=== PATIENT | male | born 1985 | race Caucasian/White ===

== ENCOUNTER 2017-06-26 17:38 | Emergency (ER) | payer OTHER ==
--- NOTE | 2017-06-26 18:38 | ED.PDOC ---
History of Present Illness - General Chief Complaint: General Stated Complaint: body aches /fever Time Seen by Provider: 06/26/17 17:52 Source: patient Exam Limitations: no limitations - History of Present Illness Initial Comments: Tristian Blanca 31 y/o male stated that he had generalized body aches since yesterday then today had fever,nasal congestion,headaches but no cough or achy throat.Denies chronic medical problems.No ill contact. Took Excedrin 3 hours ago Timing/Duration: 24 hours Severity: moderate Improving Factors: nothing Worsening Factors: nothing Associated Symptoms: other - see hpi Allergies/Adverse Reactions: Allergies NO KNOWN ALLERGY Allergy (Verified 06/26/17 18:47) Home Medications: Ambulatory Orders Oseltamivir Capsule [Tamiflu] 75 mg PO BID 5 Days #10 capsule 06/26/17 Review of Systems - Review of Systems Constitutional: States: see HPI, fever, malaise EENTM: States: see HPI, nose congestion Respiratory: States: no symptoms reported Cardiology: States: no symptoms reported Gastrointestinal/Abdominal: States: no symptoms reported Genitourinary: States: no symptoms reported Musculoskeletal: States: see HPI, muscle pain Neurological: States: see HPI, headache Endocrine: States: no symptoms reported All other Systems: Reviewed and Negative, No Change from Baseline Past Medical History (General) - Patient Medical History Hx Seizures: No Hx Asthma: No Hx Hypertension: No - Social History Hx Chewing Tobacco Use: No Hx Alcohol Use: No Hx Substance Use: No Family Medical History - Family History Mother Family History: No Known Physical Exam - Physical Exam General Appearance: Alert, Comfortable, No apparent distress Eye Exam: bilateral normal Ears, Nose, Throat: hearing grossly normal, normal ENT inspection Neck: non-tender, full range of motion, supple Respiratory: chest non-tender, lungs clear, normal breath sounds, decreased breath sounds Cardiovascular/Chest: normal peripheral pulses, regular rate, rhythm Peripheral Pulses: radial,right: 2+, radial,left: 2+ Gastrointestinal/Abdominal: normal bowel sounds, non tender, soft, no organomegaly Back Exam: normal inspection, no CVA tenderness, no vertebral tenderness Extremity: non-tender, no calf tenderness Neurologic: no motor/sensory deficits, alert, oriented x 3 Skin Exam: normal color, warm/dry Progress - Progress Progress: 06/26/17 21:08 Vital Signs - 8 hr 06/26/17 06/26/17 18:30 18:45 Temperature 98.9 F Pulse Rate [ 95 H left brachial] Respiratory 20 20 Rate Blood Pressure 148/93 [left brachial] O2 Sat by Pulse 98 Oximetry - Results/Orders Results/Orders: Laboratory Tests 06/26/17 06/26/17 18:53 19:14 WBC 4.8 RBC 5.39 Hgb 16.1 Hct 47.1 MCV 87.4 MCH 29.9 MCHC 34.2 RDW 13.0 Plt Count 208 MPV 7.4 Absolute Neuts (auto) 3.20 Absolute Lymphs (auto) 1.00 Absolute Monos (auto) 0.50 Absolute Eos (auto) 0.00 Absolute Basos (auto) 0.00 Neutrophils % 67.8 Lymphocytes % 20.0 Monocytes % 10.7 H Eosinophils % 0.9 L Basophils % 0.6 Sodium 136 Potassium 3.5 L Chloride 102 Carbon Dioxide 30 Anion Gap 7.5 L BUN 14 Creatinine 0.90 BUN/Creatinine Ratio 15.6 Random Glucose 96 Serum Osmolality 272.3 L Calcium 9.1 Departure - Departure Clinical Impression: Viral illness Time of Disposition: 21:09 Disposition: Discharge to Home or Self Care Condition: Good Departure Forms: ED Discharge - Pt. Copy, Patient Portal Self Enrollment Instructions: DI for Viral Syndrome, DI for Viral Upper Respiratory Infection - - Adult Diet: other - need to drink extra fluids Prescriptions: Oseltamivir Capsule [Tamiflu] 75 mg PO BID 5 Days #10 capsule Home Medications: Ambulatory Orders Oseltamivir Capsule [Tamiflu] 75 mg PO BID 5 Days #10 capsule 06/26/17 Additional Instructions: Continue with Tylenol 500 mg every 6 hours for fever/pain;Follow up with primary Md 06/28/2017 as needed
[2017-06-26] MEDS ORDERED: OSELTAMIVIR 75 MG CAP PO ONE (21:09)
[2017-06-26 21:28] VITALS: BP 161/86; TEMP 98.7; O2SAT 96
== END 2017-06-26 21:28 | disposition home or self-care (01) ==
LOC: ER 17:38
DX: R50.9 Fever, unspecified (principal); B34.9 Viral infection, unspecified

== ENCOUNTER 2019-09-10 18:49 | Emergency (ER) | payer SELFPAY ==
[2019-09-10] MEDS ORDERED: SODIUM CHLORIDE 0.9% (FLUSH) 10 ML SYG IV PRN (19:22)
[2019-09-10] MEDS ORDERED: KETOROLAC TROMETHAMINE INJ 30 MG/ML VIAL IV ONE (19:22)
[2019-09-10] MEDS ORDERED: SODIUM CHLORIDE 0.9% 1000ML 1,000 ML IVS ONE (19:22)
[2019-09-10] MEDS ORDERED: PIPERACILLIN/TAZOBACTAM 4.5 GM in SODIUM CHLORIDE 0.9% 100ML 100 ML IVPB ONE (19:23)
[2019-09-10] MEDS ORDERED: SODIUM CHLORIDE 0.9% 100ML 100 ML IVPB ONE (19:26)
[2019-09-10] MEDS ORDERED: PIPERACILLIN/TAZOBACTAM 2.25 GM VIAL IVPB ONE (19:26)
[2019-09-10 20:09] VITALS: O2SAT 97
[2019-09-10] MEDS ORDERED: MORPHINE SULFATE INJ 10 MG/ML VIAL IV ONE (20:41)
--- NOTE | 2019-09-10 20:49 | ED.PDOC ---
History of Present Illness - General Chief Complaint: Problem Stated Complaint: pain/swelling testicle Time Seen by Provider: 09/10/19 19:12 Source: patient, RN notes reviewed, Vital Signs reviewed, family - Exam Limitations: no limitations - History of Present Illness Initial Comments: Patient is a 34-year-old white male who presents with complaints of scrotal pain. This started a few days ago and patient was hoping it would get better and so delayed coming in. The pain in the scrotal area is stabbing in nature, moderate in intensity, nonradiating, worse with palpation, nothing seems to make it better. The patient is worsening. Timing/Duration: getting worse, other - 3 to 4 days Quality: moderate, sharpness, throbbing Onset Location: scrotal Radiation: none Activites at Onset: none Prior abdominal problems: none Sexual intercourse history: less than 2 months ago Improving Factors: nothing Worsening Factors: other - Palpation Associated Symptoms: denies symptoms Allergies/Adverse Reactions: Allergies NO KNOWN ALLERGY Allergy (Verified 06/26/17 18:47) Home Medications: Ambulatory Orders Oseltamivir Capsule [Tamiflu] 75 mg PO BID 5 Days #10 capsule 06/26/17 Acetaminophen W/ Codeine [Tylenol W/ CODEINE #3] 1 ea PO Q4H #12 09/10/19 Amoxicillin & Pot Clavulanate [Augmentin Tab] 875 mg PO BID #20 tab 09/10/19 Review of Systems - Review of Systems Constitutional: States: no symptoms reported, see HPI. Denies: chills, fever, malaise EENTM: States: no symptoms reported Respiratory: States: no symptoms reported. Denies: cough, short of breath, stridor Cardiology: States: no symptoms reported. Denies: chest pain, palpitations, syncope Gastrointestinal/Abdominal: States: no symptoms reported. Denies: abdominal pain, diarrhea, nausea, vomiting Genitourinary: States: see HPI, pain - Scrotal. Denies: discharge, dysuria, frequency Musculoskeletal: States: no symptoms reported. Denies: back pain, neck pain Skin: States: see HPI, lumps - At the base of the scrotum Neurological: States: no symptoms reported. Denies: tingling, tremors, weakness Endocrine: Denies: increased hunger, increased thirst, increased urine Hematologic/Lymphatic: States: no symptoms reported All other Systems: Reviewed and Negative Past Medical History (General) - Patient Medical History Hx Seizures: No Hx Stroke: No Hx Dementia: No Hx Asthma: No Hx of COPD: No Hx Cardiac Disorders: No Hx Congestive Heart Failure: No Hx Pacemaker: No Hx Hypertension: No Hx Thyroid Disease: No Hx Diabetes: No Hx Gastroesophageal Reflux: No Hx Renal Disease: No Hx Cancer: No Hx of HIV: No Hx Hepatitis C: No Hx MRSA: No Surgical History: no surgical history - Vaccination History Hx Tetanus, Diphtheria Vaccination: No Hx Influenza Vaccination: No Hx Pneumococcal Vaccination: No Immunizations Up to Date: No - Social History Hx Tobacco Use: No Hx Chewing Tobacco Use: No Hx Alcohol Use: Yes Hx Substance Use: No Hx Substance Use Treatment: No Hx Depression: No Feels Threatened In Home Enviroment: No Feels Threatened In a Relationship: No Hx Physical Abuse: No Hx Emotional Abuse: No - Activities of Daily Living Hospice Agency (if applicable):: None - Female History Patient is a Female of Child Bearing Age (10 -59 yrs old): No - Triage Comment ED Triage Comment: pain started on monday on 09/06/19, denies any injury or trauma Family Medical History - Family History Mother Family History: No Known Physical Exam - Physical Exam General Appearance: Alert, Anxious, Obvious distress, Obese, Well Developed, Well Groomed, Well Hydrated, Well Nourished Eyes, Ears, Nose, Throat Exam: PERRL/EOMI, normal ENT inspection, pharynx normal Neck: non-tender, full range of motion, supple, normal inspection Cardiovascular/Respiratory: no M/R/G, normal peripheral pulses, normal breath sounds, no respiratory distress, tachycardia Gastrointestinal/Abdominal: normal bowel sounds, non tender, soft Male Genital Exam: erythema - At the base of the scrotum where there is indurated tissue but no fluctuance. 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 09/10/19 21:01 Patient is much improved after pain medicine and IV antibiotics. Plan on discharge home with a prescription for Augmentin and Tylenol 3. I discussed this plan of care with the patient and his and they voiced understanding and agreement with the plan of care. Arjun Molina M.D. #[id number] - Results/Orders Results/Orders: 09/10/19 19:22 IV Care:Saline Lock per Protoc QSHIFT Sodium Chloride 0.9% (Flush) [Saline Flush Syringe] 10 ml IV PRN PRN URINALYSIS Stat Laboratory Results - last 24 hr 09/10/19 09/10/19 19:40 19:40 WBC 12.7 H RBC 5.21 Hgb 15.3 Hct 44.9 MCV 86.1 MCH 29.4 MCHC 34.2 RDW 13.0 Plt Count 264 MPV 7.7 Absolute Neuts (auto) 9.40 H Absolute Lymphs (auto) 2.10 Absolute Monos (auto) 1.00 H Absolute Eos (auto) 0.20 Absolute Basos (auto) 0.10 Neutrophils % 74.2 Lymphocytes % 16.2 L Monocytes % 7.9 Eosinophils % 1.3 Basophils % 0.4 Sodium 137 Potassium 3.4 L Chloride 103 Carbon Dioxide 25 Anion Gap 12.4 BUN 12 Creatinine 0.95 BUN/Creatinine Ratio 12.6 Random Glucose 100 Serum Osmolality 273.7 L Calcium 8.9 Vital Signs 09/10/19 09/10/19 09/10/19 18:53 19:51 20:00 Temperature 100.3 F H Pulse Rate [ 109 H 94 H 95 H monitor] Respiratory 18 16 16 Rate Blood Pressure 145/111 145/94 162/92 [Left Arm] O2 Sat by Pulse 96 97 97 Oximetry Departure - Departure Clinical Impression: Cellulitis of scrotum Fever Qualifiers: Encounter type: initial encounter Time of Disposition: 21:05 Disposition: Discharge to Home or Self Care Condition: Good Departure Forms: ED Discharge - Pt. Copy, Patient Portal Self Enrollment Instructions: Cellulitis (Skin Infection), Adult (DC) Diet: resume usual diet Activity: increase activity as tolerated Referrals: VIVIANE DIETRICH [Primary Care Provider] - 1-5 Days Prescriptions: Acetaminophen W/ Codeine [Tylenol W/ CODEINE #3] 1 ea PO Q4H #12 Amoxicillin & Pot Clavulanate [Augmentin Tab] 875 mg PO BID #20 tab Home Medications: Ambulatory Orders Oseltamivir Capsule [Tamiflu] 75 mg PO BID 5 Days #10 capsule 06/26/17 Acetaminophen W/ Codeine [Tylenol W/ CODEINE #3] 1 ea PO Q4H #12 09/10/19 Amoxicillin & Pot Clavulanate [Augmentin Tab] 875 mg PO BID #20 tab 09/10/19
[2019-09-10] MEDS ORDERED: ACETAMINOPHEN W/COD #3 TAB (ER Disp) PO ONE (21:08)
[2019-09-10] MEDS ORDERED: AMOXICILLIN & POT CLAVULANATE 875 MG TAB PO ONE (21:08)
[2019-09-10] MEDS ORDERED: ONDANSETRON ODT (ER DISP) 8 MG TAB PO ONE (21:09)
[2019-09-10 21:30] VITALS: BP 145/95; TEMP 99.3
== END 2019-09-10 21:30 | disposition home or self-care (01) ==
LOC: ER 18:49 → EDSTATUS 18:51 → ER 21:30
DX: N49.2 Inflammatory disorders of scrotum (principal); N50.82 Scrotal pain
CPT/HCPCS: 36415; 80048; 85025; J1885; J2270; J2543; J7030; J7050